=== PATIENT | female | born 1935 | race Two or more races ===

== ENCOUNTER 2020-04-27 07:09 | Outpatient (CLI) | payer OTHER | END 2020-04-27 07:13 | disposition home or self-care (01) | LOC: NUCLEAR 07:09 | PROVIDERS: ATTEND Internal Medicine Cardiovascular Disease | DX: R07.89 Other chest pain (principal); I20.8 Other forms of angina pectoris | CPT/HCPCS: 78452; 93017; A9500; J0153 ==